=== PATIENT | female | born 1955 | race African-American/Black ===

== ENCOUNTER 2017-01-08 12:00 | Inpatient (IN) | payer MEDICAID, OTHER ==
[~2017-01-08] VITALS: Ht 167.6 cm; Wt 75.7 kg
[2017-01-08] MEDS ORDERED: SODIUM CHLORIDE 0.9% 1,000 ML IV ONE (13:59)
[2017-01-08] MEDS ORDERED: MORPHINE SULFATE 4 MG/ML CPJ (NOT FOR IM USE) IV STA (13:59)
[2017-01-08 14:33] LABS: BASOPHILS % 0.4 % (0.0-2.0); EOSINOPHILS % 0.2 % (0.0-5.0); HEMATOCRIT. 34.8 % (36.0-48.0); HEMOGLOBIN. 11.7 g/dL (12.0-16.0); LYMPHOCYTES % 9.2 % (20.0-50.0); MEAN CORPUSCULAR HEMOGLOBIN 30.2 pg (28.0-32.0); MEAN CORPUSCULAR VOLUME 89.7 fL (81.0-99.0); MEAN PLATELET VOLUME 7.6 fl (7.4-10.4); MONOCYTES % 10.2 % (2.0-8.0); PLATELET 372 x1000/uL (130-400); RED BLOOD CELL COUNT 3.88 mill/uL (4.2-5.4); RED CELL DISTRIBUTION WIDTH 14.2 % (11.6-14.6)
[2017-01-08 14:37] LABS: CHLORIDE 98 mEq/L (98-107)
[2017-01-08 14:38] LABS: INR 1.1; PROTHROMBIN TIME 11.5 sec (9.4-11.6)
[2017-01-08 14:42] LABS: HCG SCREEN NEGATIVE
[2017-01-08 14:45] LABS: CARBON DIOXIDE 33 mEq/L (21-32)
[2017-01-08] MEDS ORDERED: VANCOMYCIN 1 G PREMIX 200 ML IV SCH (14:45)
[2017-01-08] MEDS ORDERED: POTASSIUM CHLORIDE 20MEQ TABLET SR PO ONE (15:15)
[2017-01-08] MEDS ORDERED: KCL 20MEQ/100ML PREMIX 100 ML IV ONE (15:45)
[2017-01-08 15:51] LABS: CLARITY URINE CLEAR (CLEAR); COLOR URINE DARK YELLOW (YELLOW); GLUCOSE URINE NEGATIVE (NEGATIVE); KETONES URINE TRACE (NEGATIVE); LEUKOCYTE ESTERASE URINE 1+ (NEGATIVE); NITRITE URINE NEGATIVE (NEGATIVE); OCCULT BLOOD URINE NEGATIVE (NEGATIVE); PH URINE 6.5 (4.5-8.0); PROTEIN URINE TRACE (NEGATIVE); SPECIFIC GRAVITY URINE 1.021 (1.005-1.030)
[2017-01-08] MEDS ORDERED: ACETAMINOPHEN 325MG TABLET PO ONE (16:00)
[2017-01-08] MEDS ORDERED: ACETAMINOPHEN 650MG/20.3ML UDC PO ONE (16:00)
[2017-01-08] MEDS ORDERED: IOHEXOL-300 100 ML BOTTLE ONE (16:17)
[2017-01-08] MEDS ORDERED: MAGNESIUM 2 G PREMIX 50 ML IV ONE (20:45)
[2017-01-08 22:45] VITALS: BP 130/64
[2017-01-08] MEDS ORDERED: ATOR40TA70 PO (23:08)
[2017-01-08] MEDS ORDERED: HYDR25TA PO (23:08)
[2017-01-08] MEDS ORDERED: NITR100C PO (23:08)
[2017-01-08] MEDS ORDERED: ASPI-1159 PO (23:08)
[2017-01-08] MEDS ORDERED: ERGO2000 PO (23:08)
[2017-01-08] MEDS ORDERED: AMLO10TA80 PO (23:08)
[2017-01-08] MEDS ORDERED: ALBU18HF2 IH (23:52)
[2017-01-09] VITALS (7 sets, daily range): BP systolic 118–149; BP diastolic 65–95
[2017-01-09] MEDS ORDERED: HYDROCODONE/ACETAMINOPHEN 5/325MG TABLET PO PRN (00:15)
[2017-01-09] MEDS ORDERED: SODIUM CHLORIDE 0.9% 1,000 ML IV SCH (00:15)
[2017-01-09] MEDS ORDERED: ONDANSETRON HCL 4MG/2ML VIAL IV PRN (00:15)
[2017-01-09] MEDS: LEVOFLOXACIN 500MG PREMIX 100 ML IV SCH ×2 (02:00→02:03)
[2017-01-09 06:44] LABS: BASOPHILS % 0.6 % (0.0-2.0); EOSINOPHILS % 1.1 % (0.0-5.0); HEMATOCRIT. 33.5 % (36.0-48.0); HEMOGLOBIN. 11.2 g/dL (12.0-16.0); LYMPHOCYTES % 15.7 % (20.0-50.0); MEAN CORPUSCULAR VOLUME 89.4 fL (81.0-99.0); MEAN PLATELET VOLUME 7.8 fl (7.4-10.4); MONOCYTES % 14.8 % (2.0-8.0); NEUTROPHILS % 67.8 % (40.0-76.0); PLATELET 370 x1000/uL (130-400); RED BLOOD CELL COUNT 3.74 mill/uL (4.2-5.4); RED CELL DISTRIBUTION WIDTH 14.2 % (11.6-14.6)
[2017-01-09 07:00] LABS: CARBON DIOXIDE 31 mEq/L (21-32); CHLORIDE 101 mEq/L (98-107)
[2017-01-09] MEDS ORDERED: ENOXAPARIN 40MG/0.4ML SYR SUBCUT SCH (09:00)
[2017-01-09] MEDS ORDERED: POTASSIUM CHLORIDE 20MEQ TABLET SR PO NR (12:40)
[2017-01-09] MEDS ORDERED: MAGNESIUM 2 G PREMIX 50 ML IV NR (13:30)
[2017-01-09] MEDS ORDERED: ACETAMINOPHEN 325MG TABLET PO PRN (17:15)
== END 2017-01-09 23:00 | disposition short-term general hospital (02) | DRG 384 ==
LOC: ER 12:01 → EDBEDREQSVC 15:06 → CANRESERV 16:29 → ENRESERV 16:29 → 6WST 17:07 → EDBEDREQ 17:17 → EDBEDREQTM 17:17 → ENRESERV 19:45
PROVIDERS: ADMIT Hospitalist; ATTEND Hospitalist
DX: S70.11XA Contusion of right thigh, initial encounter (principal); E43 Unspecified severe protein-calorie malnutrition; L97.119 Non-pressure chronic ulcer of right thigh with unspecified severity; E83.42 Hypomagnesemia; I10 Essential (primary) hypertension; E78.00 Pure hypercholesterolemia, unspecified; E87.6 Hypokalemia; I25.2 Old myocardial infarction; Z79.899 Other long term (current) drug therapy
CPT/HCPCS: 36415; 71010; 73700; 80048; 80053; 81001; 83605; 83735; 84703; 85025; 85610; 87040; 87086; 93005; 96361; 96365; 96366; 96375; 99285; J1650; J1956; J2270; J3370; J3475; J3480; J7030; Q9967